=== PATIENT | female | born 1970 | race Asian ===

== ENCOUNTER → 2019-05-25 09:11 | Outpatient (CLI) | payer OTHER, SELFPAY ==
--- NOTE | 2019-05-25 | DI.MRI.S_ITS ---
PROCEDURE: MR HEAD/BRAIN WO/W CON INDICATIONS: Tabares's palsy TECHNIQUE: Noncontrast axial T1 spin echo, axial T2 fast spin echo, sagittal and axial FLAIR, coronal T2 fast spin echo, axial gradient echo, axial diffusion and ADC through the brain. After the administration of contrast, axial and coronal 3D VIBE or T1 spin echo with fat saturation through the brain. COMPARISON: None. FINDINGS: Image quality: Excellent. CSF Spaces: Basal cisterns are patent. No extra-axial fluid collections. Ventricles are normal in size and shape. Brain: No midline shift. No intracranial bleeds or masses. No abnormal intracranial enhancement. The brainstem appears normal. Diffusion-weighted images demonstrate no acute ischemic insults. No chronic ischemic insults. Normal intravascular flow voids are present. Skull and face: Calvarial marrow is normal in signal. Orbits appear normal. Sinuses: Sinuses and mastoids appear clear. IMPRESSION: 1. No seventh cranial nerves are normal in appearance with abnormal mass or abnormal postcontrast enhancement. 2. No abnormal intracranial mass or suspicious postcontrast enhancement. 3. No acute or chronic infarcts. Dictated by: Apolonia Brown MD, PhD on 05/25/2019 at 14:39 Approved by: Apolonia Brown MD, PhD on 05/25/2019 at 14:48
== END ==
PROVIDERS: Family Provider Nurse Practitioner Family; PCP Nurse Practitioner Family; Visit Provider Psychiatry & Neurology Neurology
DX: G51.0 Bell's palsy (principal)
CPT/HCPCS: 70553; A9579